=== PATIENT | male | born 1995 | race Caucasian/White ===

== ENCOUNTER 2021-07-25 10:27 | Emergency (ER) | payer OTHER, SELFPAY ==
[2021-07-25 10:50] VITALS: BP 132/87; PULSE 70; RESP 14; TEMP 36.9; O2SAT 99; BMI 26.4
--- NOTE | 2021-07-25 11:39 | ED.SKABFB ---
HPI - Skin/Abscess/Foreign Bdy General Chief complaint: Skin/Abscess/Foreign Body Stated complaint: Head lac Time Seen by Provider: 07/25/21 10:37 Source: patient Mode of arrival: Ambulatory Limitations: no limitations History of Present Illness HPI narrative: 26M fully immunized and otherwise healthy male without chronic medical problems presents for evaluation of a left-sided head injury. [place] when he misjudged his clearance and hit the left side of his head. He suffered a laceration but denies any loss of consciousness and has no nausea, vomiting or neurologic symptoms such as blurred vision, trouble speech, difficulty ambulating. His tetanus is current. Related Data Home Medications Medication Instructions Recorded Confirmed No Known Home Medications 07/25/21 07/25/21 Allergies Allergy/AdvReac Type Severity Reaction Status Date / Time No Known Drug Allergies Allergy Verified 07/25/21 10:54 Review of Systems Review of Systems Narrative: GENERAL: Denies chills, fatigue, malaise, fever, sweats. HEENT: Denies sinus pain, ear pain, sore throat, difficulty swallowing, dizziness. RESPIRATORY: Denies dyspnea, cough, wheezing, hemoptysis, sputum. CARDIOVASCULAR: Denies chest pain, palpitations, orthopnea, edema, GASTROINTESTINAL: Denies nausea, vomiting, abdominal pain, diarrhea, constipation, melena. : Denies dysuria, frequency, incontinence, hematuria, urinary retention. MUSCULOSKELETAL: denies weakness, joint pain, or bony pain SKIN: See HPI NEUROLOGIC: Denies weakness, headache, numbness, change in speech, confusion, seizures, incoordination. PSYCHIATRIC: No concerning psychosocial issues. 12 point review of systems is negative except for those stated above Patient History Medical History Healthy adult Social History Smoking Status: Never smoker Smoking Status: Never smoker alcohol intake frequency: 0-2 drinks per day Substance Use Type: does not use Exam Narrative Exam Narrative: GEN: AOx3 and in minimal distress, GCS 15 HEAD: 2.5cm laceration on left samaritan, minimal bleeding. No foreign body noted. No evidence of depressed skull fracture NECK: No pain on palpation, no midline tenderness, step-offs EYES: Pupils are equal, round, and reactive to light and accommodation. Extraoccular muscles are intact bilaterally. There is no subconjunctival hemorrhage or exudate. CHEST: Lungs are clear to auscultation bilaterally and free of wheezes, rales, or rhonchi. Heart rate is regular rhythm, there are no murmurs, clicks, rubs, or gallops. There is no chest wall tenderness. ABD: Abdomen is soft and nontender. There is no guarding or rebound. Bowel sounds are normal in all 4 quadrants. There is no mass or organomegaly. EXT: Full painless ROM of all extremities with no loss of sensation or strength. SKIN: Warm, pink, and dry. No erythema or rash Initial Vital Signs Initial Vital Signs: Vital Signs Temperature 98.4 F 07/25/21 10:50 Pulse Rate 70 07/25/21 10:50 Respiratory Rate 14 07/25/21 10:50 Blood Pressure 132/87 07/25/21 10:50 Pulse Oximetry 99 07/25/21 10:50 Procedures Laceration Repair Laceration 1: Site: scalp Side (If applicable): left Size (cm): 2.5 Description: linear Depth: simple, single layer Local Anesthetic: lidocaine 1% and with bicarb Amount of anesthesia used (mL): 3 Pre-repair: wound explored and irrigated extensively Course Orders Ordered: Discontinued Medications Lidocaine/Sodium Bicarbonate (Lido 1%/Sod Bicarb 8.4% (10ml) 10 Ml Syringe) 10 ml INJ NOW ONE Stop: 07/25/21 11:47 Last Admin: 07/25/21 11:55 Dose: 10 ml Documented by: TOÑO Vital Signs Vital signs: Vital Signs - 8 hr 07/25/21 10:50 Temperature 98.4 F Pulse Rate 70 Respiratory Rate 14 Blood Pressure 132/87 Pulse Oximetry 99 Discharge Plan Departure Patient Disposition: Home Clinical Impression: Laceration of scalp Instructions: DI for Laceration Repair of the Scalp Activity Restrictions/Additional Instructions: Please keep the wound clean and dry to the best of your ability. Please monitor for signs of infection such as redness to the skin or increasing pain. Have the sutures/sergio removed by your doctor in about 5-7 days. If you are unable to get into your doctor, we would be happy to remove the sutures/sergio in that same timeframe. Prescriptions: No Action No Known Home Medications 0RF
[2021-07-25] MEDS: LIDO 1%/SOD BICARB 8.4% (10ML) 10 ML SYRINGE INJ (11:55)
== END 2021-07-25 12:09 | disposition home or self-care (01) ==
PROVIDERS: Emergency Provider Emergency Medicine
DX: S01.01XA Laceration without foreign body of scalp, initial encounter (principal); W22.8XXA Striking against or struck by other objects, initial encounter
CPT/HCPCS: 12001; 99283